=== PATIENT | female | born 1990 | race Two or more races ===

== ENCOUNTER → 2018-10-30 | Outpatient (CLI) | payer MEDICAID ==
[2018-10-30 10:00] LABS: Basophils # (auto) 0 uL; Basophils % (auto) 0.3 % (0.0-2.0); Eosinophils # (auto) 0 uL; Eosinophils % (auto) 0.5 % (0.0-7.0); Hematocrit 41.7 % (36.0-46.0); Hemoglobin 14.3 g/dL (12.2-16.2); Lymphocytes # (auto) 1.4 uL; Lymphocytes % (auto) 20.1 % (10.0-50.0); Mean Corpuscular Hemoglobin 30.7 pg (28.0-32.0); Mean Corpuscular Hgb Conc. 34.4 g/dL (32.0-36.0); Mean Corpuscular Volume 89.3 fL (80.0-100.0); Monocytes # (auto) 0.3 uL; Monocytes % (auto) 4.5 % (0.0-12.0); Neutrophils # (auto) 5.1 uL; Neutrophils % (auto) 74.6 % (37.0-80.0); Platelet Count (auto) 227 10^3/uL (140-450); Red Blood Cells 4.67 10^6/uL (4.0-5.20); Red Cell Distribution Width 14.1 % (11.8-14.3); White Blood Cell 6.9 10^3/uL (4.4-10.8)
[2018-10-30 10:31] LABS: Alcohol, Urine < 3.0 mg/dL (0-5); Amphetamine Screen, Urine NEGATIVE (NEGATIVE); Barbiturate Scree,Urine NEGATIVE (NEGATIVE); Benzodiazephine Screen, Urine NEGATIVE (NEGATIVE); Cannabinoid Screen, Urine NEGATIVE (NEGATIVE); Cocaine Screen, Urine NEGATIVE (NEGATIVE); Opiate Scree,Urine NEGATIVE (NEGATIVE); Phencyclidine Screen, Urine NEGATIVE (NEGATIVE)
== END | disposition home or self-care (01) ==
LOC: LAB 09:24
PROVIDERS: ATTEND Obstetrics & Gynecology
DX: Z34.01 Encounter for supervision of normal first pregnancy, first trimester (principal); Z3A.13 13 weeks gestation of pregnancy; Z20.2 Contact with and (suspected) exposure to infections with a predominantly sexual mode of transmission
CPT/HCPCS: 36415; 80307; 83036; 85025; 86703; 86762; 86850; 86900; 86901; 87086; 87340; 87591

== ENCOUNTER 2019-04-03 02:52 | Observation (INO) | payer SELFPAY ==
[~2019-04-03] VITALS: Ht 162.6 cm; Wt 86.2 kg
[2019-04-03] MEDS ORDERED: ceFAZolin 1GM 2 GM in D5W 5% 100 ML IV ONE (03:30)
[2019-04-03] MEDS ORDERED: ceFAZolin 1GM/50ML 50 ML IV ONE ×3 (03:45→04:45)
[2019-04-03 04:06] LABS: Urine Amorphous Crystal FEW /hpf (None Seen); Urine Bacteria MOD /hpf (None Seen); Urine Blood 2+ /uL (Negative); Urine Hyaline Cast FEW /lpf (0 - 2); Urine Mucus FEW (None Seen); Urine Specific Gravity 1.014 (1.001-1.035); Urine WBC 155 /hpf (0 - 5); Urine WBC Clumps PRESENT /hpf (None Seen)
[2019-04-03] MEDS ORDERED: TERBUTALINE SULFATE 1 MG/ML 1ML VIAL SC SCH (04:30)
[2019-04-03 04:36] LABS: Alcohol, Urine < 3.0 mg/dL (0-5); Amphetamine Screen, Urine NEGATIVE (NEGATIVE); Barbiturate Scree,Urine NEGATIVE (NEGATIVE); Benzodiazephine Screen, Urine NEGATIVE (NEGATIVE); Cannabinoid Screen, Urine NEGATIVE (NEGATIVE); Cocaine Screen, Urine NEGATIVE (NEGATIVE); Opiate Scree,Urine NEGATIVE (NEGATIVE); Phencyclidine Screen, Urine NEGATIVE (NEGATIVE)
[2019-04-03] MEDS ORDERED: TERBUTALINE SULFATE 1 MG/ML 1ML VIAL SC ONE (04:45)
[2019-04-03] MEDS ORDERED: PREN-96 PO (05:04)
== END 2019-04-03 05:55 | disposition home or self-care (01) | DRG 833 ==
LOC: LDRP 02:52
PROVIDERS: ADMIT Specialist; ATTEND Specialist
DX: O23.43 Unspecified infection of urinary tract in pregnancy, third trimester (principal); O99.89 Other specified diseases and conditions complicating pregnancy, childbirth and the puerperium; N89.8 Other specified noninflammatory disorders of vagina; Z3A.35 35 weeks gestation of pregnancy
CPT/HCPCS: 59025; 80307; 81001; 81002; 96365; 96366; 96372; G0378; J0690; J3105; J7060

== ENCOUNTER 2019-04-18 17:53 | Observation (INO) | payer MEDICAID ==
[~2019-04-18] VITALS: Ht 160 cm; Wt 88.9 kg
[~2019-04-18 17:53] MED LIST: PREN-96 PO
[2019-04-18 20:39] LABS: Urine Amorphous Crystal FEW /hpf (None Seen); Urine Bacteria NONE SEEN /hpf (None Seen); Urine Blood Negative /uL (Negative); Urine Mucus FEW (None Seen); Urine Specific Gravity 1.016 (1.001-1.035); Urine WBC 69 /hpf (0 - 5); Urine WBC Clumps PRESENT /hpf (None Seen)
== END 2019-04-18 19:45 | disposition home or self-care (01) | DRG 861 ==
LOC: LDRP 17:53
PROVIDERS: ADMIT Obstetrics & Gynecology; ATTEND Obstetrics & Gynecology
DX: Z34.92 Encounter for supervision of normal pregnancy, unspecified, second trimester (principal); Z3A.37 37 weeks gestation of pregnancy
CPT/HCPCS: 59025; 81001; 81002; 84112; G0378

== ENCOUNTER 2019-05-04 11:35 | Observation (INO) | payer MEDICAID | END 2019-05-04 13:40 | disposition home or self-care (01) | DRG 566 | LOC: LDRP 11:35 | PROVIDERS: ADMIT Specialist; ATTEND Specialist | DX: O62.9 Abnormality of forces of labor, unspecified (principal); O48.0 Post-term pregnancy; Z3A.40 40 weeks gestation of pregnancy | CPT/HCPCS: 59025; 76818; 81002; G0378 ==

== ENCOUNTER 2019-05-06 14:35 | Observation (INO) | payer MEDICAID | END 2019-05-06 16:00 | disposition home or self-care (01) | DRG 861 | LOC: LDRP 14:35 | PROVIDERS: ADMIT Specialist; ATTEND Specialist | DX: Z34.83 Encounter for supervision of other normal pregnancy, third trimester (principal); Z3A.40 40 weeks gestation of pregnancy | CPT/HCPCS: 59025; 76818; 81002; G0378 ==

== ENCOUNTER 2019-05-08 14:30 | Inpatient (IN) | payer MEDICAID ==
[~2019-05-08] VITALS: Ht 162.6 cm; Wt 88.9 kg
[2019-05-08] MEDS ORDERED: LACT. RINGERS/OXYTOCIN 20UNITS 1,000 ML IV SCH ×2 (15:17→23:58)
[2019-05-08] MEDS ORDERED: WITCH HAZEL-GLYCERIN PAD TOP PRN (15:30)
[2019-05-08] MEDS ORDERED: PHISODERM TOP SOLN 240ML BTL TOP PRN (15:30)
[2019-05-08] MEDS ORDERED: NALBUPHINE HCL 10 MG/1ml INJECTION IV PRN (15:30)
[2019-05-08] MEDS ORDERED: LIDOCAINE 2%HCL (LOCAL ANESTH.) INJ 20ML MDV ID ONE (15:30)
[2019-05-08] MEDS: LACTATED RINGER'S 1,000 ML IV SCH ×2 (16:05→19:02)
[2019-05-08 16:22] LABS: Basophils # (auto) 0 uL; Basophils % (auto) 0.1 % (0.0-2.0); Eosinophils # (auto) 0 uL; Eosinophils % (auto) 0.7 % (0.0-7.0); Hematocrit 37.6 % (36.0-46.0); Hemoglobin 12.7 g/dL (12.2-16.2); Lymphocytes # (auto) 1.2 uL; Lymphocytes % (auto) 18.9 % (10.0-50.0); Mean Corpuscular Hemoglobin 30.4 pg (28.0-32.0); Mean Corpuscular Hgb Conc. 33.9 g/dL (32.0-36.0); Mean Corpuscular Volume 89.9 fL (80.0-100.0); Monocytes # (auto) 0.4 uL; Monocytes % (auto) 6.8 % (0.0-12.0); Neutrophils # (auto) 4.5 uL; Neutrophils % (auto) 73.5 % (37.0-80.0); Platelet Count (auto) 182 10^3/uL (140-450); Red Blood Cells 4.19 10^6/uL (4.0-5.20); Red Cell Distribution Width 15.2 % (11.8-14.3); White Blood Cell 6.1 10^3/uL (4.4-10.8)
[2019-05-08 16:23] LABS: Urine Bacteria NONE SEEN /hpf (None Seen); Urine Blood Negative /uL (Negative); Urine Mucus FEW (None Seen); Urine Specific Gravity 1.019 (1.001-1.035); Urine WBC 3 /hpf (0 - 5)
[2019-05-08 16:27] LABS: Albumin 2.8 g/dL (3.4-5.0); Calcium 8.4 mg/dL (8.5-10.1); Potassium 3.6 mmol/L (3.5-5.1)
[2019-05-08 16:30] LABS: BUN/Creatinine Ratio 15.1; Bilirubin, Total 0.5 mg/dL (0.2-1.0); Total Protein 6.8 g/dL (6.4-8.2); Uric Acid 4.5 mg/dL (2.6-6.0)
[2019-05-08 16:35] LABS: Alcohol, Urine < 3.0 mg/dL (0-5); Amphetamine Screen, Urine NEGATIVE (NEGATIVE); Barbiturate Scree,Urine NEGATIVE (NEGATIVE); Benzodiazephine Screen, Urine NEGATIVE (NEGATIVE); Cannabinoid Screen, Urine NEGATIVE (NEGATIVE); Cocaine Screen, Urine NEGATIVE (NEGATIVE); Opiate Scree,Urine NEGATIVE (NEGATIVE); Phencyclidine Screen, Urine NEGATIVE (NEGATIVE)
[2019-05-08 16:52] LABS: INR 0.93 (0.9-1.15); Partial Thromboplastin Time 27.1 sec (23.64-32.05)
[2019-05-09] MEDS ORDERED: TERBUTALINE SULFATE 1 MG/ML 1ML VIAL SC ONE
[2019-05-09 05:06] LABS: RPR Non Reactive (Non Reactive)
[2019-05-09] MEDS ORDERED: ePHEDrine SULFATE 50 MG/ML AMP ONE ×2 (10:46→16:51)
[2019-05-09] MEDS ORDERED: fentaNYL W ROPIVACAINE 150 ML EPI ONE (10:46)
[2019-05-09] MEDS: LACTATED RINGER'S 1,000 ML IV SCH (15:17)
[2019-05-09] MEDS ORDERED: PHENYLEPHRINE HCL 10 MG/ML VL ONE (16:51)
[2019-05-09] MEDS ORDERED: OXYTOCIN 10 UNIT/ML 10ML VIAL ONE (16:52)
[2019-05-09] MEDS ORDERED: ceFAZolin 1GM VL ONE (16:53)
[2019-05-09] MEDS ORDERED: LIDOCAINE HCL 2 %PF INJ 10ML AMP IJ ONE (16:54)
[2019-05-09] MEDS ORDERED: fentaNYL CITRATE 100 MCG/2 ML VL ONE (17:03)
[2019-05-09] MEDS ORDERED: METOCLOPRAMIDE HCL 5MG/ml INJ 2ml VIAL ONE (17:21)
[2019-05-09] MEDS ORDERED: MORPHINE SULF(PF) 0.5MG/ML 10ML VIAL ONE (17:28)
[2019-05-09] MEDS ORDERED: LACT. RINGERS/OXYTOCIN 20UNITS 1,000 ML IV SCH (17:59)
[2019-05-09] MEDS ORDERED: HYDROmorphone HCL 2 MG/ML VL IV PRN ×2 (18:00→18:15)
[2019-05-09] MEDS ORDERED: ONDANSETRON HCL 4 MG/2 ML VIAL IV PRN ×3 (18:00→18:15)
[2019-05-09] MEDS ORDERED: diphenhdrAMINE HCL 50 MG/1 ML VL IV PRN (18:15)
[2019-05-09] MEDS ORDERED: NALOXONE HCL 0.4 MG/ML VIAL IV PRN ×2 (18:15)
[2019-05-09] MEDS ORDERED: KETOROLAC TROMETH 30 MG/ML 1ML VIAL IV PRN (18:15)
[2019-05-09] MEDS ORDERED: ACETAMINOPHEN IV 1000 MG/100ML (10MG/ML) IV ONE (18:15)
[2019-05-09 18:45] VITALS: BP 127/69
--- NOTE | 2019-05-09 18:45 | NUR ---
Post Op for LDRP: Received patient from PACU from [facility] via bed to room LDRP8A. Patient A/A/Ox4, abdominal binder and bilateral SCD's are in place, 2L O2 NC saturation of 95%, IV fluids placed on pump and infusing per order, incisional site dressing clean/dry/intact and Donaldson Catheter to gravity draining clear yellow urine. Incentive Spirometer at bedside and instruction on proper use with return demonstration done by patient. No distress noted.
[2019-05-09 19:45] VITALS: BP 115/59
--- NOTE | 2019-05-09 20:05 | NUR ---
Teaching: Reviewed information in [facility] booklet with patient. Discussed benefits of and risks associated with not . Discussed different positions, proper latch, feeding cues, and baby-led . Provided information of medication side effects related to . All questions and concerns addressed at this time. Patient verbalized understanding of information.
[2019-05-09 21:00] VITALS: BP 123/45
[2019-05-09 23:00] VITALS: BP 101/65
[2019-05-10] MEDS: ceFAZolin 1GM/50ML 50 ML IV SCH ×3 (00:39→17:27)
[2019-05-10 01:00] VITALS: BP 100/65
[2019-05-10 03:04] VITALS: BP 102/63
[2019-05-10 05:00] VITALS: BP 95/56
[2019-05-10 06:35] LABS: Basophils # (auto) 0 uL; Basophils % (auto) 0.6 % (0.0-2.0); Eosinophils # (auto) 0 uL; Eosinophils % (auto) 0.4 % (0.0-7.0); Hematocrit 30.2 % (36.0-46.0); Hemoglobin 10.5 g/dL (12.2-16.2); Lymphocytes # (auto) 1.4 uL; Lymphocytes % (auto) 16.3 % (10.0-50.0); Mean Corpuscular Hemoglobin 31.6 pg (28.0-32.0); Mean Corpuscular Volume 90.5 fL (80.0-100.0); Monocytes # (auto) 0.5 uL; Monocytes % (auto) 5.9 % (0.0-12.0); Neutrophils # (auto) 6.6 uL; Neutrophils % (auto) 76.8 % (37.0-80.0); Nucleated Red Blood Cells % 0.1 %; Platelet Count (auto) 155 10^3/uL (140-450); Red Blood Cells 3.33 10^6/uL (4.0-5.20); Red Cell Distribution Width 15.2 % (11.8-14.3); White Blood Cell 8.6 10^3/uL (4.4-10.8)
[2019-05-10 07:15] VITALS: BP 107/69
[2019-05-10] MEDS: LACTATED RINGER'S 1,000 ML IV SCH (07:55)
[2019-05-10] MEDS ORDERED: BISACODYL 10 MG RECT SUPP PR PRN (10:45)
--- NOTE | 2019-05-10 10:50 | NUR ---
Spivey catheter dc'd Order to discontinue spivey catheter. Spivey dc'd with clean technique following deflation of balloon. Patient tolerated well with no complaints of pain. Continue care.
--- NOTE | 2019-05-10 11:00 | NUR ---
Ambulation: Patient OOB with standby assistance by RN. [facility] teaching provided, underwear and pad changed. Dressing to ABD taken off, incision has No redness, no inflammation and no drainage noted, left open to air. ABD binder reapplied. Clean gown provided and bed linen changed. Patient ambulated to bedside chair with steady gait. Patient able to void without difficulty. [facility] teaching provided with returned demonstration by patient. Clean gown provided and bed linen changed. Patient sat in chair, baby.
[2019-05-10 15:00] VITALS: BP_SYST 100; BP_SYST 117; BP_DIAS 74; BP_DIAS 81
[2019-05-10] MEDS: HYDROcodone-ACET 5/325MG TAB PO PRN ×2 (15:56→21:00)
[2019-05-10] MEDS ORDERED: KETOROLAC TROMETH 30 MG/ML 1ML VIAL IV PRN (18:15)
[2019-05-10 19:00] VITALS: BP 110/76
--- NOTE | 2019-05-10 19:15 | NUR ---
Reviewed plan of care discussed goals, safety, , pain scale, and ambulating. Pt verbalized understanding. Denies pain. Initiated assessment, see flowsheet for complete data.
--- NOTE | 2019-05-10 20:00 | NUR ---
Out of bed ambulated 400 feet, tolerated well.
[2019-05-10] MEDS: DOCUSATE SOD 100 MG CAP PO SCH (21:00)
[2019-05-11] MEDS: IBUPROFEN 800 MG TAB PO PRN ×3 (00:03→17:22)
[2019-05-11 02:58] VITALS: BP 99/56
[2019-05-11] MEDS: HYDROcodone-ACET 5/325MG TAB PO PRN ×4 (03:10→22:03)
--- NOTE | 2019-05-11 06:10 | NUR ---
Report received from Tania Doty RN on stable pt. Assumed care. Addendum: 05/11/19 at 0645 by Wilda Posey RN Amended: Links added.
[2019-05-11 07:19] VITALS: BP 109/47
--- NOTE | 2019-05-11 07:19 | NUR ---
Lower abdominal incision, open to air with 14 cristopher noted. Well approximated, no redness, bleeding or drainage noted. Abdominal binder in place. Incentive spirometer at bedside, pt educated on use. Pt verbalizes understanding. Addendum: 05/11/19 at 1047 by Wilda Posey RN Amended: Links added.
[2019-05-11] MEDS: DOCUSATE SOD 100 MG CAP PO SCH ×2 (09:44→21:55)
[2019-05-11] MEDS: DOCUSATE CALCIUM 240 MG CAP PO SCH (09:45)
[2019-05-11 11:03] VITALS: BP 112/64
[2019-05-11 11:06] VITALS: BP 124/75
[2019-05-11 15:15] VITALS: BP 103/63
--- NOTE | 2019-05-11 18:10 | NUR ---
Report given to Tania Doty RN on stable pt. Relinquished care. Addendum: 05/11/19 at 1829 by Wilda Posey RN Amended: Links added.
[2019-05-12] MEDS: HYDROcodone-ACET 5/325MG TAB PO PRN ×2 (02:13→08:31)
[2019-05-12 07:10] VITALS: BP 110/66
--- NOTE | 2019-05-12 08:24 | NUR ---
recieved report Jovana De Anda
--- NOTE | 2019-05-12 08:25 | NUR ---
REPORT GIVEN TO Valencia BETH RN TRANSFERRED CARE.
[2019-05-12] MEDS: DOCUSATE CALCIUM 240 MG CAP PO SCH (09:33)
[2019-05-12] MEDS: DOCUSATE SOD 100 MG CAP PO SCH (09:33)
--- NOTE | 2019-05-12 09:45 | NUR ---
IV removal IV DC'd with clean technique, catheter fully intact. Pressure dressing applied to site. Patient tolerated well. NOTE:
[2019-05-12 11:00] VITALS: BP 110/66
[2019-05-12] MEDS ORDERED: INFLUENZA QUAD 2019-2020 0.5ml SYRG IM ONE (11:30)
--- NOTE | 2019-05-12 12:42 | NUR ---
cristopher removed. 14 counted for. clean technique. steri strips applied. patient tolerated well.
--- NOTE | 2019-05-12 12:43 | NUR ---
Discharge: Discharge instructions given as ordered. Pt encouraged to follow up with CERTIFIED NURSE PRACTITIONER as instructed and to call doctor tomorrow morning for appointment. All questions and concerns addressed. Patient verbalized understanding. Medication reconciliation completed and copy given to patient. All required/requested vaccines given and copies of vaccinations given to patient. Patient encouraged to prepare to depart unit.
--- NOTE | 2019-05-12 13:30 | NUR ---
Discharge: Patient taken to vehicle via wheelchair with all personal belongings, accompanied by staff and family member. No distress noted at time of departure, no adverse changes in status since initial assessment.
== END 2019-05-12 13:30 | disposition home or self-care (01) | DRG 540 ==
LOC: LDRP 14:30 → OBSVTOIN 14:30 → LDRP 05-09 17:45
PROVIDERS: ADMIT Obstetrics & Gynecology; ATTEND Obstetrics & Gynecology
PROC: 10D00Z1 Extraction of Products of Conception, Low, Open Approach (ICD-10-PCS; principal; 2019-05-09 17:02)
PROC: 3E02340 Introduction of Influenza Vaccine into Muscle, Percutaneous Approach (ICD-10-PCS; 2019-05-12)
DX: O69.81X0 Labor and delivery complicated by cord around neck, without compression, not applicable or unspecified (principal); O48.0 Post-term pregnancy; Z37.0 Single live birth; Z3A.40 40 weeks gestation of pregnancy; O62.1 Secondary uterine inertia; Z23 Encounter for immunization
CPT/HCPCS: 36415; 51702; 59025; 80053; 80307; 81001; 84112; 84550; 85025; 85610; 85730; 86592; 86703; 86762; 86850; 86900; 86901; 87340; 94760; 96365; 96366; G0378; J0131; J0690; J1885; J2590; J3010

== ENCOUNTER 2020-02-27 12:33 | Emergency (ER) | payer MEDICAID ==
[~2020-02-27] VITALS: Ht 160 cm; Wt 69.9 kg
[2020-02-27 12:46] VITALS: BP 114/77
[2020-02-27 13:32] LABS: Basophils # (auto) 0 10 ^3/uL (0-0.2); Basophils % (auto) 0.4 % (0.0-2.0); Eosinophils # (auto) 0 10 ^3/uL (0-0.8); Eosinophils % (auto) 0.4 % (0.0-7.0); Hematocrit 42.9 % (36.0-46.0); Hemoglobin 14.1 g/dL (12.2-16.2); Lymphocytes # (auto) 1.4 10 ^3/uL (0.4-5.4); Lymphocytes % (auto) 19.2 % (10.0-50.0); Mean Corpuscular Hemoglobin 29.2 pg (28.0-32.0); Mean Corpuscular Volume 88.4 fL (80.0-100.0); Monocytes # (auto) 0.4 10 ^3/uL (0-1.3); Monocytes % (auto) 5.6 % (0.0-12.0); Neutrophils # (auto) 5.5 10 ^3/uL (1.6-8.6); Neutrophils % (auto) 74.4 % (37.0-80.0); Nucleated Red Blood Cells % 0.1 %; Platelet Count (auto) 266 10^3/uL (140-450); Red Blood Cells 4.85 10^6/uL (4.0-5.20); Red Cell Distribution Width 14.6 % (11.8-14.3); White Blood Cell 7.5 10^3/uL (4.4-10.8)
[2020-02-27 13:37] LABS: Urine Bacteria FEW /hpf (None Seen); Urine Blood Negative /uL (Negative); Urine Mucus FEW (None Seen); Urine Specific Gravity 1.026 (1.001-1.035); Urine WBC 1 /hpf (0 - 5)
[2020-02-27] MEDS ORDERED: ONDANSETRON ODT 4 MG TAB PO ONE (15:00)
[2020-02-27] MEDS ORDERED: ACETAMINOPHEN 500 MG TAB PO ONE (15:00)
== END 2020-02-27 15:08 | disposition home or self-care (01) ==
LOC: ER 12:33
DX: O26.891 Other specified pregnancy related conditions, first trimester (principal); R10.30 Lower abdominal pain, unspecified; Z3A.09 9 weeks gestation of pregnancy
CPT/HCPCS: 36415; 76801; 81001; 84702; 85025; 99284; Q0162

== ENCOUNTER 2020-10-17 00:32 | Inpatient (IN) | payer MEDICAID ==
[~2020-10-17] VITALS: Ht 160 cm; Wt 77.0 kg
[2020-10-17] MEDS ORDERED: HYDROmorphone HCL 2 MG/ML VL IV ONE (01:45)
[2020-10-17] MEDS ORDERED: SODIUM CHLORIDE 0.9% 1,000 ML IVB ONE (01:45)
[2020-10-17] MEDS ORDERED: ONDANSETRON HCL 4 MG/2 ML VIAL IV ONE (01:45)
[2020-10-17 02:27] LABS: Basophils # (auto) 0 10 ^3/uL (0-0.2); Basophils % (auto) 0.3 % (0.0-2.0); Eosinophils # (auto) 0.1 10 ^3/uL (0-0.8); Eosinophils % (auto) 1.7 % (0.0-7.0); Hematocrit 41.1 % (36.0-46.0); Hemoglobin 13.9 g/dL (12.2-16.2); Lymphocytes # (auto) 2.3 10 ^3/uL (0.4-5.4); Lymphocytes % (auto) 29.1 % (10.0-50.0); Mean Corpuscular Hemoglobin 29.3 pg (28.0-32.0); Mean Corpuscular Hgb Conc. 33.8 g/dL (32.0-36.0); Mean Corpuscular Volume 86.8 fL (80.0-100.0); Monocytes # (auto) 0.4 10 ^3/uL (0-1.3); Monocytes % (auto) 5.6 % (0.0-12.0); Neutrophils # (auto) 4.9 10 ^3/uL (1.6-8.6); Neutrophils % (auto) 63.3 % (37.0-80.0); Nucleated Red Blood Cells % 0.1 %; Platelet Count (auto) 252 10^3/uL (140-450); Red Blood Cells 4.73 10^6/uL (4.0-5.20); Red Cell Distribution Width 16.4 % (11.8-14.3); White Blood Cell 7.8 10^3/uL (4.4-10.8)
[2020-10-17 02:42] LABS: INR 1.03 (0.9-1.15); Partial Thromboplastin Time 27.7 sec (23.0-31.2)
[2020-10-17 02:45] LABS: Calcium 8.5 mg/dL (8.5-10.1); Potassium 3.6 mmol/L (3.5-5.1)
[2020-10-17 02:48] LABS: Albumin 3.6 g/dL (3.4-5.0); BUN/Creatinine Ratio 25.4; Magnesium 2.1 mg/dL (1.6-2.6)
[2020-10-17 02:51] LABS: Bilirubin, Total 0.9 mg/dL (0.2-1.0); Total Protein 7.3 g/dL (6.4-8.2)
[2020-10-17] MEDS ORDERED: metroNIDAZOLE 500MG/100ML 100 ML IV ONE (06:15)
[2020-10-17] MEDS ORDERED: PIPERACILLIN-TAZOB 3.375GM 100 ML IV ONE (06:15)
[2020-10-17 11:22] LABS: Urine Bacteria FEW /hpf (None Seen); Urine Blood 1+ /uL (Negative); Urine Mucus FEW (None Seen); Urine WBC 209 /hpf (0 - 5); Urine WBC Clumps PRESENT /hpf (None Seen)
[2020-10-17] MEDS ORDERED: ACETAMINOPHEN 325 MG TAB PO PRN (11:30)
[2020-10-17] MEDS ORDERED: NITROGLYCERIN 0.4 MG SL TAB SL PRN (11:30)
[2020-10-17] MEDS ORDERED: SODIUM CHLORIDE 0.9% 1,000 ML IV SCH (11:30)
[2020-10-17] MEDS ORDERED: HYDROcodone-ACET 5/325MG TAB PO PRN (11:30)
[2020-10-17] MEDS ORDERED: MORPHINE SULF INJ 2 MG/ML SYRINGE 1ML IV PRN ×2 (11:30)
[2020-10-17] MEDS ORDERED: ONDANSETRON HCL 4 MG/2 ML VIAL IV PRN (11:30)
[2020-10-17 12:33] VITALS: BP 112/67
[2020-10-17 12:44] VITALS: BP 102/67
[2020-10-17] MEDS ORDERED: IBUP600T27 PO (12:58)
== END 2020-10-17 13:15 | disposition left against medical advice (07) | DRG 561 ==
LOC: ER 00:32 → WEST WING 11:25
PROVIDERS: ADMIT Internal Medicine; ATTEND Internal Medicine
DX: O99.63 Diseases of the digestive system complicating the puerperium (principal); K81.0 Acute cholecystitis; E66.01 Morbid (severe) obesity due to excess calories; Z98.891 History of uterine scar from previous surgery; Z20.822 Contact with and (suspected) exposure to COVID-19; Z53.29 Procedure and treatment not carried out because of patient's decision for other reasons; O99.214 Obesity complicating childbirth
CPT/HCPCS: 36415; 74176; 76705; 80053; 81001; 82150; 83690; 83735; 85025; 85610; 85730; 87426; 96361; 96365; 96366; 96367; 96375; G0378; J2405; J2543; J3490